=== PATIENT | female | born 1975 | race Caucasian/White ===

== ENCOUNTER 2017-11-11 09:33 | Emergency (ER) | payer MEDICAID | END 2017-11-11 10:47 | disposition home or self-care (01) | LOC: D.ER 09:33 | DX: J06.9 Acute upper respiratory infection, unspecified (principal); J01.90 Acute sinusitis, unspecified; F17.200 Nicotine dependence, unspecified, uncomplicated ==

== ENCOUNTER 2017-12-27 16:28 | Emergency (ER) | payer MEDICAID | END 2017-12-27 19:00 | disposition home or self-care (01) | LOC: D.ER 16:28 | DX: H60.11 Cellulitis of right external ear (principal); S00.461A Insect bite (nonvenomous) of right ear, initial encounter; W57.XXXA Bitten or stung by nonvenomous insect and other nonvenomous arthropods, initial encounter; Y93.89 Activity, other specified; Y92.019 Unspecified place in single-family (private) house as the place of occurrence of the external cause; E03.9 Hypothyroidism, unspecified ==

== ENCOUNTER 2017-12-28 18:54 | Emergency (ER) | payer MEDICAID | END 2017-12-28 22:07 | disposition home or self-care (01) | LOC: D.ER 18:54 | DX: H60.11 Cellulitis of right external ear (principal); E03.9 Hypothyroidism, unspecified ==

== ENCOUNTER 2017-12-31 17:17 | Emergency (ER) | payer MEDICAID | END 2017-12-31 18:26 | disposition home or self-care (01) | LOC: D.ER 17:17 | DX: H60.11 Cellulitis of right external ear (principal); E03.9 Hypothyroidism, unspecified ==

== ENCOUNTER 2018-02-08 20:31 | Emergency (ER) | payer MEDICAID | END 2018-02-08 22:05 | disposition home or self-care (01) | LOC: D.ER 20:31 | DX: J06.9 Acute upper respiratory infection, unspecified (principal); J20.9 Acute bronchitis, unspecified; E03.9 Hypothyroidism, unspecified; F17.200 Nicotine dependence, unspecified, uncomplicated ==

== ENCOUNTER 2018-04-04 16:34 | Emergency (ER) | payer MEDICAID ==
[~2018-04-04] VITALS: Ht 182.9 cm; Wt 81.8 kg
[2018-04-04] MEDS ORDERED: ZYPREXA2.5 MG PO (16:56)
[2018-04-04] MEDS ORDERED: HALOPERIDOL1 MG PO (16:56)
[2018-04-04] MEDS ORDERED: SYNTHROID175 MCG PO (16:57)
[2018-04-04] MEDS ORDERED: KLONOPIN0.5 MG PO (16:57)
[2018-04-04 17:57] LABS: UDS - AMPHET POSITIVE QUAL (NEGATIVE); UDS - BARB NEGATIVE QUAL (NEGATIVE); UDS - BENZO NEGATIVE QUAL (NEGATIVE); UDS - COCAINE NEGATIVE QUAL (NEGATIVE); UDS - OPIATE NEGATIVE QUAL (NEGATIVE); UDS - PCP NEGATIVE QUAL (NEGATIVE); UDS - THC NEGATIVE QUAL (NEGATIVE)
[2018-04-04 18:00] LABS: BASOPHILS 0.2 % (0-2); EOSINOPHILS 2.2 % (0-7); HEMATOCRIT 36.1 % (36.0-48.0); HEMOGLOBIN 11.3 g/dL (12-16); IMMATURE GRANULOCYTES 0.1 % (0-5); LYMPHOCYTES 28.2 % (15-50); MCH 27.6 pg (26.0-34.0); MCHC 31.3 g/dL (31.0-37.0); MEAN PLATELET VOLUME 9.6 fL (7.4-10.4); NEUTROPHILS 62.3 % (40-80); PLATELET COUNT 232 10x3/uL (130-400); RDW 15.6 % (11.5-14.5); WBC 8.1 10x3/uL (4.8-10.8)
[2018-04-04 18:33] LABS: HCG SERUM NEGATIVE (NEGATIVE)
[2018-04-04 18:50] LABS: ANION GAP 18.7 mmol/L (8-16); CALCIUM 8.8 mg/dL (8.5-10.1); CARBON DIOXIDE 20.7 mmol/L (21.0-32.0); CREATININE - SERUM 1.1 mg/dL (0.6-1.3); POTASSIUM - SERUM 4.4 mmol/L (3.5-5.1)
[2018-04-04 18:53] LABS: APPEARANCE CLEAR (CLEAR); BILIRUBIN NEGATIVE (NEGATIVE); COLOR YELLOW (YELLOW); GLUCOSE NEGATIVE (NEGATIVE); KETONE NEGATIVE (NEGATIVE); NITRITE NEGATIVE (NEGATIVE); PROTEIN NEGATIVE (NEGATIVE); UROBILINOGEN NORMAL (NORMAL)
[2018-04-04 18:54] LABS: BACTERIA MANY /hpf (NONE SEEN); RED CELLS - URINE 0-5 /hpf (0-5)
[2018-04-04 18:58] LABS: THYROID STIMULATING HORMONE 56.98 uIU/mL (0.36-3.74)
[2018-04-04 19:14] VITALS: Ht 182.9 cm; Wt 81.8 kg
[2018-04-04 22:49] VITALS: BP 141/78
== END 2018-04-04 22:51 ==
LOC: D.ER 16:34
PROVIDERS: Family Medicine
DX: F15.10 Other stimulant abuse, uncomplicated (principal); F22 Delusional disorders; S61.512A Laceration without foreign body of left wrist, initial encounter; X78.9XXA Intentional self-harm by unspecified sharp object, initial encounter; Y93.89 Activity, other specified; Y92.019 Unspecified place in single-family (private) house as the place of occurrence of the external cause; F17.200 Nicotine dependence, unspecified, uncomplicated

== ENCOUNTER 2018-09-12 21:02 | Emergency (ER) | payer MEDICAID ==
[~2018-09-12] VITALS: Ht 182.9 cm; Wt 81.8 kg
[~2018-09-12 21:02] MED LIST: HALOPERIDOL1 MG PO; KLONOPIN0.5 MG PO; SYNTHROID175 MCG PO; ZYPREXA2.5 MG PO
[2018-09-12 21:06] VITALS: Ht 182.9 cm; Wt 81.8 kg
[2018-09-12 22:05] LABS: BASOPHILS 0.1 % (0-2); EOSINOPHILS 2.2 % (0-7); HEMATOCRIT 35.3 % (36.0-48.0); HEMOGLOBIN 11.6 g/dL (12-16); IMMATURE GRANULOCYTES 0.2 % (0-5); LYMPHOCYTES 16.4 % (15-50); MCH 28.6 pg (26.0-34.0); MCHC 32.9 g/dL (31.0-37.0); MCV 86.9 fL (80.0-100.0); MEAN PLATELET VOLUME 10.3 fL (7.4-10.4); MONOCYTES 9.4 % (2-11); NEUTROPHILS 71.7 % (40-80); RBC 4.06 10x6/uL (4.00-5.40); RDW 14.3 % (11.5-14.5); WBC 12.5 10x3/uL (4.8-10.8)
[2018-09-12 22:11] LABS: APPEARANCE HAZY (CLEAR); BILIRUBIN NEGATIVE (NEGATIVE); COLOR YELLOW (YELLOW); GLUCOSE NEGATIVE (NEGATIVE); KETONE NEGATIVE (NEGATIVE); NITRITE NEGATIVE (NEGATIVE); PROTEIN 1+ mg/dL (NEGATIVE); SPECIFIC GRAVITY 1.025 (1.005-1.020); UROBILINOGEN NORMAL (NORMAL)
[2018-09-12 22:12] LABS: WHITE CELLS - URINE >50 /hpf (0-5)
[2018-09-12 22:14] LABS: BACTERIA MANY /hpf (NONE SEEN); EPITHELIAL CELLS 0-5 /hpf (0-5); MUCUS <1+ /lpf (NONE SEEN)
[2018-09-12 22:14] LABS: ALBUMIN 3.7 g/dL (3.4-5.0); ANION GAP 15.7 mmol/L (8-16); BILIRUBIN - TOTAL 1.95 mg/dL (0.2-1.3); CALCIUM 8.9 mg/dL (8.5-10.1); CARBON DIOXIDE 21.3 mmol/L (21.0-32.0); CREATININE - SERUM 2.1 mg/dL (0.6-1.3); MAGNESIUM - SERUM 1.8 mg/dL (1.8-2.4); PROTEIN - SERUM 7.3 g/dL (6.4-8.2)
[2018-09-12 22:15] LABS: HCG URINE NEGATIVE (NEGATIVE)
[2018-09-12 22:21] LABS: PLATELET COUNT 309 10x3/uL (130-400)
[2018-09-12 22:22] LABS: UDS - AMPHET POSITIVE QUAL (NEGATIVE); UDS - BARB NEGATIVE QUAL (NEGATIVE); UDS - BENZO NEGATIVE QUAL (NEGATIVE); UDS - COCAINE NEGATIVE QUAL (NEGATIVE); UDS - OPIATE NEGATIVE QUAL (NEGATIVE); UDS - PCP NEGATIVE QUAL (NEGATIVE); UDS - THC NEGATIVE QUAL (NEGATIVE)
[2018-09-13 02:37] VITALS: BP 137/84
== END 2018-09-13 02:39 ==
LOC: D.ER 21:02
PROVIDERS: Family Medicine
DX: F15.10 Other stimulant abuse, uncomplicated (principal); F32.9 Major depressive disorder, single episode, unspecified; Z86.59 Personal history of other mental and behavioral disorders; L01.00 Impetigo, unspecified; Z91.19 Patient's noncompliance with other medical treatment and regimen; R45.851 Suicidal ideations; F17.200 Nicotine dependence, unspecified, uncomplicated

== ENCOUNTER 2018-11-09 08:51 | Emergency (ER) | payer MEDICAID ==
[~2018-11-09] VITALS: Ht 167.6 cm; Wt 61.4 kg
[2018-11-09 08:52] VITALS: BP 130/68; Ht 167.6 cm; Wt 61.4 kg
== END 2018-11-09 09:25 | disposition left against medical advice (07) ==
LOC: D.ER 08:51
DX: F15.10 Other stimulant abuse, uncomplicated (principal); F17.200 Nicotine dependence, unspecified, uncomplicated

== ENCOUNTER 2018-11-18 11:12 | Emergency (ER) | payer MEDICAID ==
[~2018-11-18] VITALS: Ht 167.6 cm; Wt 72.7 kg
[2018-11-18 11:26] VITALS: BP 134/96; Ht 167.6 cm; Wt 72.7 kg
== END 2018-11-18 11:52 | disposition left against medical advice (07) ==
LOC: D.ER 11:12
DX: F19.10 Other psychoactive substance abuse, uncomplicated (principal); F29 Unspecified psychosis not due to a substance or known physiological condition

== ENCOUNTER 2019-03-01 08:34 | Emergency (ER) | payer MEDICAID ==
[~2019-03-01] VITALS: Ht 167.6 cm; Wt 63.6 kg
[2019-03-01 08:36] VITALS: BP 177/113; Ht 167.6 cm; Wt 63.6 kg
[2019-03-01 09:23] LABS: HCG URINE NEGATIVE (NEGATIVE)
[2019-03-01 09:25] LABS: UDS - AMPHET POSITIVE QUAL (NEGATIVE); UDS - BARB NEGATIVE QUAL (NEGATIVE); UDS - BENZO NEGATIVE QUAL (NEGATIVE); UDS - COCAINE NEGATIVE QUAL (NEGATIVE); UDS - OPIATE NEGATIVE QUAL (NEGATIVE); UDS - PCP NEGATIVE QUAL (NEGATIVE); UDS - THC NEGATIVE QUAL (NEGATIVE)
[2019-03-01 09:30] LABS: APPEARANCE SL CLDY (CLEAR); BILIRUBIN NEGATIVE (NEGATIVE); GLUCOSE NEGATIVE (NEGATIVE); KETONE NEGATIVE (NEGATIVE); NITRITE NEGATIVE (NEGATIVE); PROTEIN TRACE mg/dL (NEGATIVE); SPECIFIC GRAVITY 1.025 (1.005-1.020)
[2019-03-01 09:31] LABS: BACTERIA MODERATE /hpf (NONE SEEN); EPITHELIAL CELLS 0-5 /hpf (0-5); MUCUS <1+ /lpf (NONE SEEN); RED CELLS - URINE 0-5 /hpf (0-5)
[2019-03-01 10:30] LABS: BASOPHILS 0.1 % (0-2); EOSINOPHILS 1.7 % (0-7); HEMATOCRIT 34.8 % (36.0-48.0); HEMOGLOBIN 11.6 g/dL (12-16); IMMATURE GRANULOCYTES 0.1 % (0-5); LYMPHOCYTES 27.5 % (15-50); MCH 28.6 pg (26.0-34.0); MCHC 33.3 g/dL (31.0-37.0); MCV 85.9 fL (80.0-100.0); MEAN PLATELET VOLUME 9.2 fL (7.4-10.4); MONOCYTES 10.4 % (2-11); NEUTROPHILS 60.2 % (40-80); PLATELET COUNT 287 10x3/uL (130-400); RBC 4.05 10x6/uL (4.00-5.40); RDW 14.6 % (11.5-14.5); WBC 8.1 10x3/uL (4.8-10.8)
[2019-03-01 10:47] LABS: ALBUMIN 3.7 g/dL (3.4-5.0); BILIRUBIN - TOTAL 0.92 mg/dL (0.2-1.3); CALCIUM 8.8 mg/dL (8.5-10.1); CARBON DIOXIDE 25.9 mmol/L (21.0-32.0); CREATININE - SERUM 1.2 mg/dL (0.6-1.3); POTASSIUM - SERUM 3.9 mmol/L (3.5-5.1); PROTEIN - SERUM 7.2 g/dL (6.4-8.2)
[2019-03-01 10:56] LABS: MAGNESIUM - SERUM 1.9 mg/dL (1.8-2.4); THYROID STIMULATING HORMONE 71.23 uIU/mL (0.36-3.74)
[2019-03-01] MEDS ORDERED: FLAGYL500 MG PO (11:55)
[2019-03-01] MEDS ORDERED: DOXYCYCLINE HY100 M2 PO (11:55)
[2019-03-01] MEDS ORDERED: SYNTHROID175 MCG PO (11:55)
== END 2019-03-01 12:34 | disposition home or self-care (01) ==
LOC: D.ER 08:34
PROVIDERS: Family Medicine
DX: F15.10 Other stimulant abuse, uncomplicated (principal); F31.9 Bipolar disorder, unspecified; F20.9 Schizophrenia, unspecified; E03.9 Hypothyroidism, unspecified; A59.9 Trichomoniasis, unspecified

== ENCOUNTER 2019-05-04 15:26 | Emergency (ER) | payer MEDICAID ==
[~2019-05-04] VITALS: Ht 167.6 cm; Wt 65.9 kg
[~2019-05-04 15:26] MED LIST changes: +DOXYCYCLINE HY100 M2 PO; +FLAGYL500 MG PO
[2019-05-04 16:03] VITALS: Ht 167.6 cm; Wt 65.9 kg
--- NOTE | 2019-05-04 16:56 | NUR ---
THE PATIENT SCORES MODERATE ON THE SUICIDE ASSESSMENT, SHE ADMITS SUICIDAL THOUGHTS, BUT DENIES A PLAN. SHE WILL REQUIRE 1:1 OBSERVATION.
[2019-05-04 17:06] LABS: APPEARANCE CLEAR (CLEAR); BILIRUBIN NEGATIVE (NEGATIVE); COLOR YELLOW (YELLOW); GLUCOSE NEGATIVE (NEGATIVE); KETONE MODERATE mg/dL (NEGATIVE); NITRITE NEGATIVE (NEGATIVE); PROTEIN 1+ mg/dL (NEGATIVE); SPECIFIC GRAVITY 1.025 (1.005-1.020); UROBILINOGEN NORMAL (NORMAL)
[2019-05-04 17:07] LABS: UDS - AMPHET POSITIVE QUAL (NEGATIVE); UDS - BARB NEGATIVE QUAL (NEGATIVE); UDS - BENZO NEGATIVE QUAL (NEGATIVE); UDS - COCAINE NEGATIVE QUAL (NEGATIVE); UDS - OPIATE NEGATIVE QUAL (NEGATIVE); UDS - PCP NEGATIVE QUAL (NEGATIVE); UDS - THC NEGATIVE QUAL (NEGATIVE)
[2019-05-04 17:25] LABS: BASOPHILS 0.1 % (0-2); EOSINOPHILS 0.4 % (0-7); HEMATOCRIT 33.9 % (36.0-48.0); HEMOGLOBIN 11.4 g/dL (12-16); IMMATURE GRANULOCYTES 0.2 % (0-5); LYMPHOCYTES 18.4 % (15-50); MCH 28.1 pg (26.0-34.0); MCHC 33.6 g/dL (31.0-37.0); MCV 83.5 fL (80.0-100.0); MEAN PLATELET VOLUME 9.9 fL (7.4-10.4); MONOCYTES 12.3 % (2-11); NEUTROPHILS 68.6 % (40-80); PLATELET COUNT 234 10x3/uL (130-400); RBC 4.06 10x6/uL (4.00-5.40)
[2019-05-04 17:32] LABS: ALBUMIN 3.5 g/dL (3.4-5.0); ANION GAP 18.7 mmol/L (8-16); BILIRUBIN - TOTAL 2.55 mg/dL (0.2-1.3); CARBON DIOXIDE 22.3 mmol/L (21.0-32.0); CREATININE - SERUM 1.8 mg/dL (0.6-1.3); PROTEIN - SERUM 6.8 g/dL (6.4-8.2)
[2019-05-04 21:06] VITALS: BP 110/62
== END 2019-05-04 22:29 ==
LOC: D.ER 15:26
PROVIDERS: Family Medicine
DX: R45.851 Suicidal ideations (principal); E86.0 Dehydration; F15.10 Other stimulant abuse, uncomplicated